=== PATIENT | female | born 1980 | race Caucasian/White ===

== ENCOUNTER 2017-02-14 11:44 | Emergency (ER) | payer MEDICAID | END 2017-02-14 13:05 | disposition home or self-care (01) | LOC: D.ER 11:44 | DX: K08.89 Other specified disorders of teeth and supporting structures (principal) ==

== ENCOUNTER 2017-03-25 14:04 | Emergency (ER) | payer MEDICAID | END 2017-03-25 16:20 | disposition home or self-care (01) | LOC: D.ER 14:04 | DX: Z76.0 Encounter for issue of repeat prescription (principal); M79.662 Pain in left lower leg; M79.661 Pain in right lower leg ==